=== PATIENT | male | born 2000 | race African-American/Black ===

== ENCOUNTER 2018-01-03 12:24 | Emergency (ER) | payer OTHER ==
[~2018-01-03] VITALS: Ht 170.2 cm; Wt 68.0 kg
[2018-01-03 12:28] VITALS: BP 148/83; PULSE 64; RESP 18; TEMP 98.3; O2SAT 100
[2018-01-03 13:31] VITALS: BP 128/70; PULSE 67; RESP 17; O2SAT 100
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
[2018-01-03 17:11] VITALS: BP 120/56
== END 2018-01-03 17:12 | disposition home or self-care (01) ==
LOC: NEPD 12:24
DX: S09.90XA Unspecified injury of head, initial encounter (principal); V49.9XXA Car occupant (driver) (passenger) injured in unspecified traffic accident, initial encounter
CPT/HCPCS: 70450; 99283